=== PATIENT | female | born 1965 | race Caucasian/White ===

== ENCOUNTER → 2018-06-28 | Outpatient (CLI) | payer BC ==
[~2018-06-28] MED LIST: MECL25TA9 PO; ONDA4TAB9 PO
--- NOTE | 2018-06-29 12:16 | RADIOLOGY IMAGING REPORT ---
[place] [facility] [place] MEIR ELDRIDGE : [id number] MR: [id number] V: [id number] EXAM DATE: [id number] ORDERING PHYSICIAN: BALJIT IRELAND TECHNOLOGIST: Izabel Demarco PROCEDURE:BILATERAL DIGITAL SCREENING MAMMOGRAM WITH CAD ASSISTED INTERPRETATION & 3D TOMOSYNTHESIS COMPARISON:Prior mammograms 06/02/17, 04/04/16, 02/26/15, 12/02/13, 08/29/11. INDICATIONS:SCREENING FINDINGS: The breasts are heterogeneously dense which may obscure small masses. The parenchymal pattern has remained stable allowing for difference in mammographic technique & patient positioning. Well circumscribed nodular density in the upper outer quadrant of the Right breast remains stable. There are course calcifications identified in the 12 o'clock position of the Right breast that have remained stable. DIAGNOSTIC CATEGORY 2--BENIGN FINDING. RECOMMENDATIONS: ROUTINE MAMMOGRAM AND CLINICAL EVALUATION. IMPRESSION: BIRADS 2: Benign finding. No significant abnormality is seen. Dictated by: Meg Frazier M.D. on 06/28/2018 at 17:37 Transcribed by: FAZAL on 06/29/2018 at 8:46 Approved by: Meg Frazier M.D. on 06/29/2018 at 12:15 [facility]
== END ==
LOC: MAMO 02:27
PROVIDERS: ATTEND Family Medicine
DX: Z12.31 Encounter for screening mammogram for malignant neoplasm of breast (principal)
CPT/HCPCS: 77063; 77067